=== PATIENT | female | born 1985 | race Caucasian/White ===

== ENCOUNTER → 2016-09-13 | Outpatient (CLI) | payer MEDICAID ==
--- NOTE | 2016-09-13 11:38 | RADIOLOGY REPORT (SQ) ---
EXAM DESCRIPTION: MRI LUMBAR SPINE WITHOUT COMPLETED DATE/TIME: 09/13/2016 11:14 am REASON FOR STUDY: LUMBAR RADICULOPATHY M54.16 RADICULOPATHY, LUMBAR REGION M25.559 PAIN IN UNSPECI FIED HIP COMPARISON: None. TECHNIQUE: Sagittal and Axial imaging includes T1, T2, STIR and gradient echo sequences. Coronal T2/ HASTE imaging. LIMITATIONS: None. FINDINGS: VISUALIZED UPPER ABDOMEN: Limited evaluation. No acute or suspicious findings suggested. SEGMENTATION: No transitional anatomy. The lowest well-developed disc space is labeled L5-S1. ALIGNMENT: Anatomic. VERTEBRAE: Intact. BONE MARROW: Normal. No marrow replacement or reactive changes. DISC SIGNAL: Normal. No significant abnormal signal or loss of height. POSTERIOR ELEMENTS: Generally intact. No pars defect evident. HARDWARE: None in the spine. CORD AND CONUS: Normal in size and signal intensity. Conus at the appropriate level. SOFT TISSUES: No aortic aneurysm seen. No bulky retroperitoneal adenopathy or mass. No paraspinal mas s or fluid. L1-L2: No significant spinal stenosis or exit foraminal stenosis. L2-L3: No significant spinal stenosis or exit foraminal stenosis. L3-L4: No significant spinal stenosis or exit foraminal stenosis. L4-L5: No significant spinal stenosis or exit foraminal stenosis. L5-S1: No significant spinal stenosis or exit foraminal stenosis. LOWER THORACIC: Incompletely imaged. No stenosis seen. SACRUM: Visualized upper sacrum intact. OTHER: No other significant findings. IMPRESSION: NORMAL MRI LUMBAR SPINE. TECHNICAL DOCUMENTATION: JOB ID: [id number] [employer]- All Rights Reserved
--- NOTE | 2016-09-13 13:30 | RADIOLOGY REPORT (SQ) ---
EXAM DESCRIPTION: HIP BILATERAL COMPLETED DATE/TIME: 09/13/2016 12:09 pm REASON FOR STUDY: HIP PAIN, RADICULOPATHY LUMBAR REGION (COMPARE TO NM BONE SCAN) M54.16 RADICULOPA THY, LUMBAR REGION M25.559 PAIN IN UNSPECIFIED HIP COMPARISON: None. NUMBER OF VIEWS: Two views TECHNIQUE: AP pelvis and additional frog-leg view of both hips. LIMITATIONS: None. FINDINGS: MINERALIZATION: Normal. HIPS: No acute fracture or dislocation. No worrisome bone lesions. PELVIS AND SACRUM: No acute fracture or dislocation. No worrisome bone lesions. PUBIS AND ISCHIUM: No acute fracture. LOWER LUMBAR SPINE: No significant findings as visualized. SOFT TISSUES: No findings. OTHER: No other significant finding. IMPRESSION: NEGATIVE STUDY OF THE PELVIS AND HIPS. TECHNICAL DOCUMENTATION: JOB ID: [id number] [employer]- All Rights Reserved
--- NOTE | 2016-09-13 15:10 | RADIOLOGY REPORT (SQ) ---
EXAM DESCRIPTION: NM 3 PHASE BONE SCAN COMPLETED DATE/TIME: 09/13/2016 2:18 pm REASON FOR STUDY: HIP PAIN M54.16 RADICULOPATHY, LUMBAR REGION M25.559 PAIN IN UNSPECIFIED HIP COMPARISON: No available imaging studies for comparison. RADIONUCLIDE AND DOSE: 17.8 millicuries Tc99m HDP. The route of agent administration: Intravenous. ADDITIONAL DRUGS AND DOSES: None. TECHNIQUE: Following injection of the radiopharmaceutical, serial blood flow images acquired. Equil ibrium blood pool images then acquired. Routine delayed images at 3 hour acquired of the areas of cl inical concern with additional focused images as needed. AREA OF INTEREST: Pelvis and hips LIMITATIONS: None. FINDINGS: VASCULAR FLOW IMAGES: No asymmetry or focal areas of hyperemia. BLOOD POOL IMAGES: No asymmetry or focal areas of soft-tissue hyper-perfusion. BONES: Normal visualization without areas of photopenia or increased bony uptake of radiopharmaceutic al. KIDNEYS: Symmetric excretion without obstruction. OTHER: No other significant finding. IMPRESSION: NORMAL 3 PHASE BONE SCAN. COMMENT: PQRS [id number]: Current bone scan is compared with any available plain radiographs, prior bone scans, and CT/MRI. TECHNICAL DOCUMENTATION: JOB ID: [id number] [employer]- All Rights Reserved
== END ==
LOC: RAD 09:45
PROVIDERS: ATTEND Specialist
DX: M54.16 Radiculopathy, lumbar region (principal); M25.552 Pain in left hip; M25.551 Pain in right hip
CPT/HCPCS: 72148; 73522; 78315; A9561; Q9969

== ENCOUNTER 2017-11-19 22:34 | Emergency (ER) | payer SELFPAY ==
[2017-11-19] MEDS ORDERED: IPRATROPIUM/ALBUTEROL 0.5-2.5 MG/3 ML AMPUL NEB ONE (23:40)
[2017-11-19] MEDS ORDERED: PREDNISONE 20 MG TABLET PO ONE (23:41)
[2017-11-19] MEDS ORDERED: GUAIFENESIN/CODEINE PHOS 100-10 MG/ 5 ML UDC PO ONE (23:42)
[2017-11-19] MEDS ORDERED: ONDANSETRON 4 MG TAB.RAPDIS PO ONE (23:42)
--- NOTE | 2017-11-19 23:44 | ER Document Report ---
ED General - General Chief Complaint: Breathing Difficulty Stated Complaint: BREATHING DIFFICULTY Time Seen by Provider: 11/19/17 23:30 Mode of Arrival: Ambulatory Information source: Patient, [facility] Records Notes: 32-year-old female with asthma, seizures, migraines, hypothyroidism, anxiety presents with complaint of shortness of breath and associated cough that started 3 days prior to arrival. Patient has been experiencing shortness of breath at rest and with exertion. She describes her cough as intermittent and not productive. Patient has associated chest tightness and nausea. She denies any chest pain. She does admit to abdominal pain when she coughs. She denies past admissions for her asthma. She does not have any asthma medications at home. She smokes half a pack of cigarettes per day. Last menstrual period was 3 weeks prior to arrival. TRAVEL OUTSIDE OF THE [place] IN LAST 30 DAYS: No - HPI Onset: Other Onset/Duration: Gradual, Persistent, Worse Quality of pain: Achy, Other - Chest tightness. Associated symptoms: Chills, Nonproductive cough, Nausea, Shortness of breath. denies: Fever Exacerbated by: Walking, Coughing Relieved by: Denies Similar symptoms previously: Yes Recently seen / treated by doctor: No - Related Data Allergies/Adverse Reactions: latex [Latex] Allergy (Verified 02/24/17 19:06) Past Medical History - General Information source: Patient, [facility] Records - Social History Smoking Status: Current Every Day Smoker Cigarette use (# per day): Yes - 10 Chew tobacco use (# tins/day): No Smoking Education Provided: Yes - 4 minutes of smoking cessation provided Frequency of alcohol use: None Drug Abuse: None Lives with: Family Family History: Arthritis, CAD, DM, Hyperlipidemia, Hypertension, Malignancy, Thyroid Disfunction. denies: COPD, CVA Patient has suicidal ideation: No Patient has homicidal ideation: No Pulmonary Medical History: Reports: Hx Asthma, Hx Bronchitis Neurological Medical History: Reports: Hx Migraine, Hx Seizures - From stress Endocrine Medical History: Reports: Hx Hypothyroidism Renal/ Medical History: Reports: Hx Ovarian Cysts. Denies: Hx Peritoneal Dialysis Musculoskeletal Medical History: Reports Hx Arthritis, Reports Hx Musculoskeletal Deformity, Reports Hx Musculoskeletal Trauma Psychiatric Medical History: Reports: Hx Anxiety - She states she does not have anxiety she just takes Xanax to calm herself d Traumatic Medical History: Reports: Hx Fractures - States she had a dislocated coccyx and hip that healed itself Past Surgical History: Reports: Hx Gynecologic Surgery - Right oopherectomy, Hx Oral Surgery, Hx Tubal Ligation, Other - Cyst removed from hip - Immunizations Immunizations up to date: No Hx Diphtheria, Pertussis, Tetanus Vaccination: No Review of Systems - Review of Systems Notes: REVIEW OF SYSTEMS: CONSTITUTIONAL : Denies fever, chills, or sweats. Denies recent illness. Denies weight loss, recent hospitalizations. EENT: Denies visual changes, eye pain. Denies nasal or sinus congestion or discharge. Denies sore throat, oral lesions, difficulty swallowing. CARDIOVASCULAR: Denies chest pain. Denies palpitations. RESPIRATORY: Denies cough, cold, or chest congestion. GASTROINTESTINAL: Denies abdominal pain or distention. Denies nausea, vomiting , or diarrhea. Denies blood in vomitus, stools, or per rectum. Denies black, tarry stools. Denies constipation. GENITOURINARY: Denies difficulty urinating, painful urination, frequency, blood in urine, or vaginal discharge. MUSCULOSKELETAL: Denies back or neck pain or stiffness. Denies joint pain or swelling. SKIN: Denies rash, lesions or sores. HEMATOLOGIC : Denies easy bruising or bleeding. LYMPHATIC: Denies swollen glands. NEUROLOGICAL: Denies confusion or altered mental status. Denies passing out or loss of consciousness. Denies dizziness or lightheadedness. Denies headache. Denies weakness or paralysis. Denies problems difficulty with ambulation, slurred speech. Denies sensory loss, numbness, or tingling. Denies seizures. PSYCHIATRIC: Denies anxiety or stress. Denies depression, suicidal ideation, or homicidal ideation. Denies visual or auditory hallucinations. Physical Exam - Vital signs Vitals: Temp Pulse Resp BP Pulse Ox 99.2 F 71 28 H 121/78 96 11/19/17 22:44 11/19/17 22:44 11/19/17 22:44 11/19/17 22:44 11/19/17 22:44 - Notes Notes: PHYSICAL EXAMINATION: GENERAL: Well-appearing, well-nourished and in no acute distress. HEAD: Atraumatic, normocephalic. EYES: Pupils equal round and reactive to light, extraocular movements intact, conjunctiva are normal. ENT: Nares patent, oropharynx clear without exudates. Moist mucous membranes. NECK: Normal range of motion, supple without lymphadenopathy LUNGS: Breath sounds clear to auscultation bilaterally and equal. Mild inspiratory wheezing in the right upper lung field. HEART: Regular rate and rhythm without murmurs ABDOMEN: Soft, nontender, nondistended abdomen. No guarding, no rebound. No masses appreciated. Female : deferred Musculoskeletal: Normal range of motion, no pitting or edema. No cyanosis. NEUROLOGICAL: Cranial nerves grossly intact. Normal speech, normal gait. Normal sensory, motor exams PSYCH: Normal mood, normal affect. SKIN: Warm, Dry, normal turgor, no rashes or lesions noted. Course - Re-evaluation Re-evalutation: Chest X-Ray 11/19/17 23:40 IMPRESSION: No acute cardiopulmonary findings. 32-year-old female with asthma, seizures, migraines, hypothyroidism, anxiety presents with complaint of shortness of breath and associated cough that started 3 days prior to arrival. Patient has been experiencing shortness of breath at rest and with exertion. She describes her cough as intermittent and not productive. Patient has associated chest tightness and nausea. Patient was seen by myself upon arrival. Vital signs were reviewed. Patient is afebrile , normotensive and not hypoxic. Patient does not appear toxic or dehydrated. They are in no acute distress. Previous medical records and nursing notes reviewed. Significant findings include respiratory and x-ray wheezing. Patient is in no respiratory distress. She is able to speak in full sentences. There is no accessory muscle use. Patient did receive a DuoNeb and albuterol as well as Robitussin-AC and prednisone. And on reevaluation reports an improvement in her shortness of breath. Chest x-ray was obtained and showed no acute process. 11/20/17 01:06 Repeat blood pressure upon discharge is 106/62. Patient does have a history of low blood pressure. Butyryl MDI provided. Prescription for prednisone given. Patient provided the opportunity to ask questions, and express concerns. Discharge instructions discussed. Patient is agreeable with discharge home. Return indications explained and discussed with the patient who displays understanding. Patient encouraged to return to the emergency department immediately with any concerns. Smoking cessation advised. 11/20/17 01:06 11/20/17 02:11 11/20/17 02:13 - Vital Signs Vital signs: Temp Pulse Resp BP Pulse Ox 98.9 F 71 18 106/52 L 96 11/20/17 01:15 11/19/17 22:44 11/20/17 01:01 11/20/17 01:01 11/20/17 01:01 - Diagnostic Test Radiology reviewed: Image reviewed, Reports reviewed Discharge - Discharge Clinical Impression: Tobacco use, Cough, Shortness of breath Asthma exacerbation Qualifiers: Asthma severity: mild Asthma persistence: intermittent Qualified Code(s): J45.21 - Mild intermittent asthma with (acute) exacerbation Condition: Good Disposition: HOME, SELF-CARE Instructions: Asthma ([facility]), Stop Smoking ([facility]) Prescriptions: Guaifenesin/Pseudoephedrne HCl [Mucinex D ER Tablet] 1 each PO BID 7 Days #14 tab.er.12h Prednisone [Deltasone 20 mg Tablet] 3 tab PO DAILY 5 Days #15 tablet Forms: Smoking Cessation Education Referrals: PARVIN ALLEN DO [Primary Care Provider] - Follow up in 3-5 days
--- NOTE | 2017-11-20 00:28 | RADIOLOGY REPORT (SQ) ---
EXAM DESCRIPTION: XR CHEST 2 VIEWS COMPLETED DATE/TME: 11/19/2017 23:40 CLINICAL HISTORY: 32 years Female, sob COMPARISON: 12.9.14 FINDINGS: Adequate lung volume, clear parenchyma, normal cardiac silhouette, and intact bony thorax. IMPRESSION: No acute cardiopulmonary findings.
[2017-11-20] MEDS ORDERED: ALBUTEROL SULFATE HFA (90 MCG/PUFF) 8 GM MDI (1 MDI/ER DISP) IH PRN (01:03)
[2017-11-20 01:07] VITALS: BP 106/52
== END 2017-11-20 01:15 | disposition home or self-care (01) ==
LOC: ER 22:34
DX: J45.21 Mild intermittent asthma with (acute) exacerbation (principal); R05 Cough; R06.02 Shortness of breath; R10.9 Unspecified abdominal pain; R07.89 Other chest pain; R11.0 Nausea; R68.83 Chills (without fever); F17.210 Nicotine dependence, cigarettes, uncomplicated; Z71.6 Tobacco abuse counseling; Z91.040 Latex allergy status
CPT/HCPCS: 99406; 94640; 99285; 71046; S0119; J7512; J3490; J7620

== ENCOUNTER 2017-12-17 10:36 | Day surgery (SDC) | payer MEDICAID ==
[~2017-12-17 10:36] MED LIST: PROPOFOL INJ 200 MG/20 ML VIAL IV ONE
[2017-12-17] MEDS ORDERED: PROPOFOL INJ 200 MG/20 ML VIAL IV ONE ×2 (12:31)
[2017-12-17 13:20] VITALS: BP 103/77
--- NOTE | 2017-12-17 15:47 | Operative Report ---
Operative Report DATE OF SURGERY: 12/17/17 Operative Report: The risks, benefits and alternatives of the procedure including risks of bleeding, perforation requiring surgery are explained to the patient in detail and informed consent is obtained. The patient is brought back to the endoscopy suite and placed in the left, lateral decubital position. Timeout was called. Propofol medication is administered. A rectal examination is done which did not reveal any masses, tears or fissures. An Olympus videoscope was inserted into the patient's rectum. The scope was then carefully advanced all the way to the cecum. The cecum was identified by the usual anatomical landmarks including the ileocecal valve as well as the appendiceal office. Photodocumentation is obtained. The scope was then sequentially pulled back via the various segments of the colon including the ascending colon, hepatic flexure, transverse colon, splenic flexure, descending colon and finding to the rectosigmoid portions of the colon. Retroflexion maneuver is performed. The risks benefits and alternatives of the procedure explained to the patient in detail and informed consent is obtained.A GIF Olympus video scope was inserted into the patient's mouth and hypopharynx, the esophagus is identified intubated and insufflated, the scope was then advanced through the esophagus stomach and duodenum, retroflexion maneuver is done ,the esophagus stomach and first and second portions of the duodenum examined PREOPERATIVE DIAGNOSIS: Change in bowel habits. Dysphagia POSTOPERATIVE DIAGNOSIS: Right-sided colon inflammation status post biopsy to rule out lymphocytic, microscopic, collagenous colitis. Internal hemorrhoids. Schatzki's ring that is broken. Gastritis status post biopsy rule out Helicobacter pylori OPERATION: Colonoscopy with biopsy. EGD with biopsy SURGEON: AIRAM BUENO ANESTHESIA: LMAC TISSUE REMOVED OR ALTERED: As noted above. COMPLICATIONS: None. ESTIMATED BLOOD LOSS: None. INTRAOPERATIVE FINDINGS: As noted above. PROCEDURE: Patient tolerated the procedure well. No immediate postprocedure complications are noted. Patient discharged in good condition. Discharge date 12/17/2017. Discharge diet: Regular. Discharge activity: Regular. 2-3 week follow-up to discuss findings. Patient is instructed to call the office or proceed to the emergency room should there be any further problems or questions. We will wait on the pathology.
== END 2017-12-17 13:15 | disposition home or self-care (01) ==
LOC: END 10:36
PROVIDERS: ATTEND Internal Medicine Gastroenterology
DX: K52.9 Noninfective gastroenteritis and colitis, unspecified (principal); K22.2 Esophageal obstruction; K64.8 Other hemorrhoids; K29.50 Unspecified chronic gastritis without bleeding; F17.210 Nicotine dependence, cigarettes, uncomplicated; M19.90 Unspecified osteoarthritis, unspecified site; J45.909 Unspecified asthma, uncomplicated; E11.9 Type 2 diabetes mellitus without complications; D64.9 Anemia, unspecified; M47.897 Other spondylosis, lumbosacral region; E07.9 Disorder of thyroid, unspecified; Z79.891 Long term (current) use of opiate analgesic; Z91.040 Latex allergy status
CPT/HCPCS: 43239; 45380; 81025; 88342 ×2; 88305 ×2; J2704; 813

== ENCOUNTER → 2018-01-17 | Outpatient (CLI) | payer MEDICAID ==
--- NOTE | 2018-01-17 09:30 | RADIOLOGY REPORT (SQ) ---
EXAM DESCRIPTION: U/S ABDOMEN COMPLETE W/DOPPLER COMPLETED DATE/TIME: 01/17/2018 9:21 am REASON FOR STUDY: NAUSEA AND VOMITING R11.2 NAUSEA WITH VOMITING, UNSPECIFIED COMPARISON: None. TECHNIQUE: Dynamic and static grayscale images acquired of the abdomen and recorded on PACS. Shiloho cathleen selected color Doppler and spectral images recorded. LIMITATIONS: None. FINDINGS: PANCREAS: No masses. Visualized pancreatic duct normal caliber. LIVER: No masses. Echotexture normal. LIVER VASCULATURE: Normal directional flow of the main portal vein. GALLBLADDER: No stones. Normal wall thickness. No pericholecystic fluid. ULTRASOUND-DETECTED FARAH'S SIGN: Negative. INTRAHEPATIC DUCTS AND COMMON DUCT: CBD and intrahepatic ducts normal caliber. No filling defects. INFERIOR VENA CAVA: Normal flow. AORTA: No aneurysm. RIGHT KIDNEY: 12 cm in length. Normal echogenicity. No solid or suspicious masses. No hydronep hrosis. No calcifications. LEFT KIDNEY: 10.6 cm in length. Normal echogenicity. No solid or suspicious masses. No hydrone phrosis. No calcifications. SPLEEN: Normal size. No solid masses. PERITONEAL AND PLEURAL SPACES: No ascites or effusions. OTHER: No other significant finding. IMPRESSION: NORMAL ABDOMINAL ULTRASOUND. TECHNICAL DOCUMENTATION: JOB ID: [id number] [employer]- All Rights Reserved Reading location - IP/workstation name: [email or web address]
== END ==
LOC: RAD 09:02
PROVIDERS: ATTEND Internal Medicine Gastroenterology
DX: R11.2 Nausea with vomiting, unspecified (principal)
CPT/HCPCS: 76700; 93976